=== PATIENT | male | born 1975 | race Caucasian/White ===

== ENCOUNTER 2016-08-04 21:11 | Emergency (ER) | payer SELFPAY ==
[2016-08-04] MEDS ORDERED: Fluconazole 100 MG TAB* TAB PO ONE ×2 (22:02→22:25)
--- NOTE | 2016-08-04 22:11 | UC ---
Skin Complaint HPI - HPI Summary HPI Summary: total body itchy plaques/rash for 2 months. Started on calves, seemed to spread up legs and now encompasses entire body. VEry itchy after exposure to hot water. Has a hot tub, no one else with rash, he has stayed out of the hot tub for the past few weeks. No history of similar rash. No eczema or psoriasis. Hydrocortisone cream will help temporarily with itching, but doesn't help rash. No athlete's foot or jock itch that he is aware of. 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 No new meds. No one else in household with similar rash - History of Current Complaint Chief Complaint: UCRash Time Seen by Provider: 08/04/16 21:52 Stated Complaint: RASH Hx Obtained From: Patient Onset/Duration: Gradual Onset Timing: Constant Onset Severity: Mild Current Severity: Moderate Location: Diffuse Character: Pruritus, Redness, Raised Aggravating: Showering - heat Alleviating: Nothing Associated Signs & Symptoms: Positive: Negative - Allergy/Home Medications Allergies/Adverse Reactions: Allergies Allergy/AdvReac Type Severity Reaction Status Date / Time No Known Allergies Allergy Verified 08/04/16 21:26 Home Medications: Home Medications Diphenhydramine-Zinc Acetate [Benadryl Itch Stopping 1-0.1 %] 1 applic TOPICAL Q4H PRN 08/04/16 [History Confirmed 08/04/16] Hydrocortisone 1% CREAM* [Hytone Cream 1%*] 1 applic TOPICAL QID PRN 08/04/16 [ History Confirmed 08/04/16] Review of Systems Constitutional: Negative Skin: Rash Eyes: Negative ENT: Negative Respiratory: Negative Cardiovascular: Negative Gastrointestinal: Negative Genitourinary: Negative Motor: Negative Neurovascular: Negative Musculoskeletal: Negative Neurological: Negative Psychological: Negative All Other Systems Reviewed And Are Negative: Yes PMH/Surg Hx/FS Hx/Imm Hx Previously Healthy: Yes - Surgical History Surgical History: None - Family History Known Family History: Positive: Other - no psoriasis or other skin disorders - Social History Occupation: Employed Full-time Lives: With Family Alcohol Use: Rare Substance Use Type: None Smoking Status (MU): Never Smoked Tobacco - Immunization History Most Recent Influenza Vaccination: Not the Season Physical Exam Triage Information Reviewed: Yes Appearance: Well-Appearing, No Pain Distress, Well-Nourished Vital Signs: Initial Vital Signs Temp 98.3 F 08/04/16 21:23 Pulse 80 08/04/16 21:23 Resp 16 08/04/16 21:23 BP 131/88 08/04/16 21:23 Pulse Ox 99 08/04/16 21:23 Vital Signs Reviewed: Yes Eye Exam: Normal Neck exam: Normal Respiratory Exam: Normal Cardiovascular Exam: Normal Musculoskeletal Exam: Normal Neurological Exam: Normal Psychological Exam: Normal Skin Exam: Other - raised scaly plaques all over body, most notable on calves. Also on arms, back. Not on face. He has a mild athlete's foot between toes. Course/Dx - Course Course Of Treatment: I think this is an id reaction from tinea pedis. Will treat with oral anti-fungal. I asked him to see a Research Animal Attendant if it isn't improving - Diagnoses Provider Diagnoses: id reaction Discharge - Discharge Plan Condition: Stable Disposition: HOME Prescriptions: Fluconazole [Diflucan 150 MG (NF)] 150 mg PO DAILY #5 tab Patient Education Materials: Acute Rash (ED) Referrals: No Primary Care Phys,NOPCP [Primary Care Provider] - Kaycee Light [Medical Doctor] - Julito Rosario MD [Medical Doctor] - Additional Instructions: I think your rash is an "id reaction". This is an immune response to a mild infection, often a fungal infection. The immune system goes wild and creates a total-body itchy rash. It is not contagious or dangerous. Treating the initial infection will cause the rash to go away. If the rash does not improve in a week or so, make an appointment with a Research Animal Attendant. They can better tell exactly what this rash is.
[2016-08-04] MEDS ORDERED: Fluconazole 100 MG TAB* TAB ONE (22:23)
== END 2016-08-04 22:29 | disposition home or self-care (01) ==
LOC: UCCORT 21:11
DX: L30.2 Cutaneous autosensitization (principal); B35.3 Tinea pedis
CPT/HCPCS: 99202; A9270-GY; G0463